=== PATIENT | male | born 1990 | race Hispanic/Latino ===

== ENCOUNTER 2018-02-18 20:20 | Emergency (ER) | payer OTHER ==
[~2018-02-18] VITALS: Ht 175.3 cm; Wt 77.1 kg
[~2018-02-18 20:20] MED LIST: CEPHALEXIN500 MG PO; GUIATUSS AC SY120 ML PO; NAPROSYN500 MG PO; NORCO 5-325 TA1 EACH PO; ZOFRAN ODT4 MG PO
[2018-02-18] MEDS ORDERED: ALEVE220 MG PO (21:13)
== END 2018-02-19 00:43 | disposition home or self-care (01) ==
LOC: ED 20:20
DX: S00.83XA Contusion of other part of head, initial encounter (principal); Y04.2XXA Assault by strike against or bumped into by another person, initial encounter
CPT/HCPCS: 70110; 99283